=== PATIENT | male | born 1975 | race Caucasian/White ===

== ENCOUNTER 2020-07-30 13:06 | Emergency (ER) | payer OTHER ==
[~2020-07-30] VITALS: Ht 182.9 cm; Wt 115.7 kg
[2020-07-30 13:15] VITALS: BP_SYST 133
[2020-07-30 13:59] VITALS: BP_SYST 133
== END 2020-07-30 13:59 | disposition home or self-care (01) ==
LOC: SED 13:06
DX: T78.40XA Allergy, unspecified, initial encounter (principal); X58.XXXA Exposure to other specified factors, initial encounter
CPT/HCPCS: 99283